=== PATIENT | male | born 1990 ===

== ENCOUNTER 2019-09-29 19:23 | Emergency (ER) | payer BC ==
[2019-09-29] MEDS ORDERED: dexAMETHasone 10 MG/ML VIAL ONE (20:46)
--- NOTE | 2019-09-29 20:55 | RAD REPORT ---
EXAM DESCRIPTION: RAD - Chest Single View - 09/29/2019 8:47 pm CLINICAL HISTORY: CHEST PAIN Chest pain. COMPARISON: Chest Single View dated 03/23/2019No comparisons FINDINGS: Portable technique limits examination quality. The lungs are grossly clear. The heart is normal in size. No displaced fractures. IMPRESSION: No acute intrathoracic process suspected.
--- NOTE | 2019-09-29 21:17 | EDPHYS ---
Physician Documentation [facility] Name: Andrew Aranda Age: 28 yrs Sex: Male : 1990 Arrival Date: 09/29/2019 Time: 19:28 Bed 20 Private MD: ED Physician Francisco Butler HPI: 09/28 20:51 This 28 yrs old Male presents to ER via Ambulatory with complaints of Numbness rn Of Arm. 20:51 The patient or guardian complains of tingling. The complaints affect the left arm. rn Onset: The symptoms/episode began/occurred 1 week(s) ago. Associated signs and symptoms: Pertinent positives: numbness, tingling, Pertinent negatives: decreased range of motion, deformity, erythema, fever, pain, swelling, weakness. Severity of symptoms: At their worst the symptoms were mild, in the emergency department the symptoms are unchanged. The patient has not experienced similar symptoms in the past. Reports "neck problems", but no recent injury, noticed numbness/tingling to left arm for 1 week, intermittent, for last 2 days chest has "felt funny", no pain, but feels "something". No fever/cough/trauma/sob. No famhx of early cardiac problems. . Historical: - Allergies: 19:37 No Known Allergies; lp1 - Home Meds: 19:37 None [Active]; lp1 - PMHx: 19:37 None; lp1 - PSHx: 19:37 collapsed lung; Hernia repair; lp1 - Immunization history:: Adult Immunizations up to date. - Social history:: Smoking status: Patient denies any tobacco usage or history of. - Family history:: not pertinent. - Hospitalizations: : No recent hospitalization is reported. ROS: 20:51 Constitutional: Negative for fever, chills, and weight loss, Eyes: Negative for injury, rn pain, redness, and discharge, Neck: Negative for injury, pain, and swelling, Cardiovascular: Negative for palpitations, and edema, Respiratory: Negative for shortness of breath, cough, wheezing, and pleuritic chest pain, Abdomen/GI: Negative for abdominal pain, nausea, vomiting, diarrhea, and constipation, MS/Extremity: Negative for injury and deformity, Skin: Negative for injury, rash, and discoloration, Neuro: Negative for headache, weakness, and seizure. Exam: 20:51 Constitutional: This is a well developed, well nourished patient who is awake, alert, rn and in no acute distress. Head/Face: Normocephalic, atraumatic. Neck: Trachea midline, no masses palpated, and no cervical lymphadenopathy. Supple, full range of motion without nuchal rigidity, or vertebral point tenderness. No Meningismus. Cardiovascular: Regular rate and rhythm. No pulse deficits. Respiratory: No increased work of breathing, no retractions or nasal flaring. Skin: Warm, dry with normal turgor. Normal color with no rashes, no lesions, and no evidence of cellulitis. MS/ Extremity: Pulses equal, no cyanosis. Neurovascular intact. Full, normal range of motion. Equal circumference. Neuro: Awake and alert, GCS 15, oriented to person, place, time, and situation. Cranial nerves II-XII grossly intact. Motor strength 5/5 in all extremities. Sensory grossly intact. Cerebellar exam normal. Normal gait. 20:51 ECG was reviewed by the Attending Physician. Vital Signs: 19:37 BP 133 / 85; Pulse 79; Resp 18; Temp 98(TE); Pulse Ox 99% on R/A; Weight 127.01 kg (R); lp1 Height 6 ft. 0 in. (182.88 cm); 20:55 BP 127 / 82; Pulse 78; Resp 18; Temp 98.2(O); Pulse Ox 98% on R/A; Pain 3/10; ks7 21:24 BP 124 / 87; Pulse 80; Resp 18; Temp 98.2; Pulse Ox 100% on R/A; mg2 19:37 Body Mass Index 37.97 (127.01 kg, 182.88 cm) lp1 MDM: 20:11 Patient medically screened. rn 21:16 Differential diagnosis: radiculopathy. Data reviewed: vital signs, nurses notes, labor specialist test result(s), EKG, radiologic studies, plain films, and as a result, I will discharge patient. Counseling: I had a detailed discussion with the patient and/or guardian regarding: the historical points, exam findings, and any diagnostic results supporting the discharge/admit diagnosis, lab results, radiology results, the need for outpatient follow up, to return to the emergency department if symptoms worsen or persist or if there are any questions or concerns that arise at home. Special discussion: Based on the patient's history, exam, and Dx evaluation, there is no indication for emergent intervention or inpatient Tx. It is understood by the patient/guardian that if the Sx's persist or worsen they need to return immediately for re-evaluation. I discussed with the patient/guardian in detail that at this point there is no indication for admission to the hospital. It is understood, however, that if the symptoms persist or worsen the patient needs to return immediately for re-evaluation. 09/28 20:17 Order name: Troponin (emerg Dept Use Only); Complete Time: 21:16 rn 09/28 20:17 Order name: XRAY Chest (1 view); Complete Time: 21:02 rn 09/28 20:17 Order name: IV Start; Complete Time: 20:31 rn 09/28 20:17 Order name: EKG; Complete Time: 20:18 rn 09/28 20:17 Order name: EKG - Nurse/Tech; Complete Time: 20:53 rn EC:51 Rate is 70 beats/min. Rhythm is regular. Right axis deviation noted. QRS is positive in rn lead aVF and negative in lead I. RI interval is normal. QRS interval is normal. QT interval is normal. No Q waves. T waves are Normal. No ST changes noted. Clinical impression: NSR w/ Non-specific ST/T Changes. Interpreted by me. Reviewed by me. Administered Medications: 20:35 Drug: Decadron - Dexamethasone 10 mg Route: IVP; Site: left antecubital; ks7 21:20 Follow up: Response: No adverse reaction mg2 Disposition: 09/29/19 21:16 Discharged to Home. Impression: Paresthesia of skin, Radiculopathy, cervical region. - Condition is Stable. - Discharge Instructions: Cervical Radiculopathy, Paresthesia. - Prescriptions for Medrol (Ozzy) 4 mg Oral Tablets, Dose Pack - take 1 tablet by ORAL route as directed - follow package instructions; 1 packet. - Medication Reconciliation Form, Thank You Letter, Antibiotic Education, Prescription Opioid Use form. - Follow up: Private Physician; When: As needed; Reason: Recheck today's complaints, Re-evaluation by your physician. - Problem is new. - Symptoms have improved. Signatures: Dispatcher [employer] EDMS Francisco Butler MD MD rn Hoover, Nancy, RN RN lp1 Vikram Manuel, RN RN mg2 Nuris Gomez, RN RN ks7 Corrections: (The following items were deleted from the chart) 21:25 21:16 09/29/2019 21:16 Discharged to Home. Impression: Paresthesia of skin; mg2 Radiculopathy, cervical region. Condition is Stable. Forms are Medication Reconciliation Form, Thank You Letter, Antibiotic Education, Prescription Opioid Use. Follow up: Private Physician; When: As needed; Reason: Recheck today's complaints, Re-evaluation by your physician. Problem is new. Symptoms have improved. rn
--- NOTE | 2019-09-29 21:17 | ER ---
Nurse's Notes [facility] Name: Andrew Aranda Age: 28 yrs Sex: Male : 1990 Arrival Date: 09/29/2019 Time: 19:28 Bed 20 Private MD: Diagnosis: Paresthesia of skin;Radiculopathy, cervical region Presentation: 09/28 19:34 Chief complaint: Patient states: About a week ago, numbness to left arm; states has not lp1 improved and now feels some heaviness to left side of chest; Denies any shortness of breath, loss of balance; states intermittent pinching, burning to medial left arm. Ebola Screen: No symptoms or risks identified at this time. Risk Assessment: Do you want to hurt yourself or someone else? Patient reports no desire to harm self or others. Onset of symptoms was September 29, 2019. 19:34 Method Of Arrival: Ambulatory lp1 19:34 Acuity: EILEEN 3 lp1 19:41 Coronavirus screen: Client denies travel out of the [place] in the last 14 days. At this lp1 time, the client does not indicate any symptoms associated with coronavirus-19. Initial Sepsis Screen: Does the patient meet any 2 criteria? No. Patient's initial sepsis screen is negative. Does the patient have a suspected source of infection? No. Patient's initial sepsis screen is negative. Historical: - Allergies: 19:37 No Known Allergies; lp1 - Home Meds: 19:37 None [Active]; lp1 - PMHx: 19:37 None; lp1 - PSHx: 19:37 collapsed lung; Hernia repair; lp1 - Immunization history:: Adult Immunizations up to date. - Social history:: Smoking status: Patient denies any tobacco usage or history of. - Family history:: not pertinent. - Hospitalizations: : No recent hospitalization is reported. Screenin:41 Abuse screen: Denies threats or abuse. Denies injuries from another. Nutritional lp1 screening: No deficits noted. Tuberculosis screening: No symptoms or risk factors identified. Fall Risk None identified. Assessment: 20:27 General: Appears in no apparent distress. uncomfortable, Behavior is calm, cooperative. ks7 Pain: Complains of pain in chest left Pain currently is 4 out of 10 on a pain scale. Quality of pain is described as pressure, pinching on L side of chest Pain began 2-3 days ago. Is intermittent. Cardiovascular: Reports chest pressure, pinching feeling that started 3 days ago. started with numbness in L arm. pt denies sob, sweating n/v. Respiratory: Breath sounds are clear. 21:25 Reassessment: Patient denies pain at this time. Patient states feeling better. mg2 Vital Signs: 19:37 BP 133 / 85; Pulse 79; Resp 18; Temp 98(TE); Pulse Ox 99% on R/A; Weight 127.01 kg (R); lp1 Height 6 ft. 0 in. (182.88 cm); 20:55 BP 127 / 82; Pulse 78; Resp 18; Temp 98.2(O); Pulse Ox 98% on R/A; Pain 3/10; ks7 21:24 BP 124 / 87; Pulse 80; Resp 18; Temp 98.2; Pulse Ox 100% on R/A; mg2 19:37 Body Mass Index 37.97 (127.01 kg, 182.88 cm) lp1 ED Course: 19:28 Patient arrived in ED. ag3 19:36 Triage completed. lp1 19:37 Arm band placed on right wrist. lp1 20:11 Francisco Butler MD is Attending Physician. rn 20:22 Nuris Gomez, BHUMI is Primary Nurse. ks7 20:27 Resting quietly. ks7 20:27 Patient has correct armband on for positive identification. Bed in low position. Call ks7 light in reach. Side rails up X2. 20:27 No provider procedures requiring assistance completed. Inserted saline lock: 20 gauge ks7 in left antecubital area, using aseptic technique. Blood collected. 20:31 Troponin (emerg Dept Use Only) Sent. ks7 20:47 XRAY Chest (1 view) In Process Unspecified. EDMS 20:54 Troponin (emerg Dept Use Only) Sent. ks7 21:25 IV discontinued, intact, bleeding controlled, No redness/swelling at site. Pressure mg2 dressing applied. Administered Medications: 20:35 Drug: Decadron - Dexamethasone 10 mg Route: IVP; Site: left antecubital; ks7 21:20 Follow up: Response: No adverse reaction mg2 Outcome: 21:16 Discharge ordered by . rn 21:25 Discharged to home ambulatory. mg2 21:25 Condition: stable 21:25 Discharge instructions given to patient, Instructed on discharge instructions, follow up and referral plans. medication usage, Demonstrated understanding of instructions, follow-up care, medications, Prescriptions given X 1. 21:25 Patient left the ED. mg2 Signatures: Dispatcher [employer] EDMS Francisco Butler MD MD rn Pena, Laura, RN RN lp1 Vikram Manuel RN RN mg2 Denisha Cid ag3 Nuris Gomez RN RN ks7
[2019-09-29 21:33] VITALS: TEMP 98.2
[2019-09-29 21:34] VITALS: BP 124/87; O2SAT 100
== END 2019-09-29 21:25 | disposition home or self-care (01) ==
LOC: ER 19:23 → EDSEX 19:23 → ER 21:25
DX: M54.12 Radiculopathy, cervical region (principal)
CPT/HCPCS: 93005; 36415; 84484; 71045; 96374; 99284; J1100